=== PATIENT | male | born 1980 | race Two or more races ===

== ENCOUNTER 2018-06-26 11:56 | Emergency (ER) | payer SELFPAY ==
[~2018-06-26] VITALS: Ht 193 cm; Wt 76.0 kg
[2018-06-26 12:18] VITALS: BP 117/73
[2018-06-26] MEDS ORDERED: SODIUM CHLORIDE 0.9% 1,000 ML IV ONE (12:26)
[2018-06-26] MEDS ORDERED: ACETAMINOPHEN 325MG TABLET PO STA (12:26)
[2018-06-26] MEDS ORDERED: BACITRACIN ZINC OINT UDPKT TOP ONE (12:30)
[2018-06-26 13:27] LABS: CHLORIDE 108 mEq/L (98-107)
[2018-06-26 13:29] LABS: BASOPHILS % 0.8 % (0.0-2.0); EOSINOPHILS % 1.5 % (0.0-5.0); HEMATOCRIT. 39.4 % (42.0-52.0); HEMOGLOBIN. 13.4 g/dL (14.0-18.0); LYMPHOCYTES % 21.8 % (20.0-50.0); MEAN CORPUSCULAR HEMOGLOBIN 30.4 pg (28.0-32.0); MEAN CORPUSCULAR VOLUME 89.5 fL (80.0-94.0); MEAN PLATELET VOLUME 8.7 fl (7.4-10.4); MONOCYTES % 13.5 % (2.0-8.0); NEUTROPHILS % 62.4 % (40.0-76.0); PLATELET 225 x1000/uL (130-400)
[2018-06-26 13:32] LABS: ETHANOL BLOOD < 10 mg/dL
== END 2018-06-26 13:35 | disposition left against medical advice (07) ==
LOC: ER 11:56
DX: R55 Syncope and collapse (principal); R00.0 Tachycardia, unspecified; F12.10 Cannabis abuse, uncomplicated; F15.10 Other stimulant abuse, uncomplicated; Z72.0 Tobacco use; S00.211A Abrasion of right eyelid and periocular area, initial encounter; W01.198A Fall on same level from slipping, tripping and stumbling with subsequent striking against other object, initial encounter; Y93.89 Activity, other specified; Y92.480 Sidewalk as the place of occurrence of the external cause
CPT/HCPCS: 36415; 80053; 84484; 85025; 93005; 99285; G0482; J7030